=== PATIENT | male | born 1980 | race Caucasian/White ===

== ENCOUNTER 2017-06-05 09:59 | Emergency (ER) | payer MEDICAID ==
[~2017-06-05] VITALS: Ht 180.3 cm; Wt 68.2 kg
[2017-06-05] MEDS ORDERED: VENL-193 PO (10:09)
[2017-06-05] MEDS ORDERED: VENLAFAXINE HCL 75 MG TABLET PO ONE (10:30)
[2017-06-05] MEDS ORDERED: PERTUSS(ACELL),DIPH,TET VAC/PF 0.5 ML VIAL IM ONE (10:30)
[2017-06-05 10:36] LABS: BASOPHILS # (AUTO) 0.02 K/uL (0.00-0.20); BASOPHILS % (AUTO) 0.1 % (0.0-2.0); EOSINOPHILS # (AUTO) 0.06 K/uL (0.00-0.70); EOSINOPHILS % (AUTO) 0.36 % (1.0-6.0); HEMATOCRIT 41.2 % (41-53); HEMOGLOBIN 14.1 g/dL (13.5-17.5); LYMPHOCYTES # (AUTO) 2.4 K/uL (1.0-4.8); LYMPHOCYTES % (AUTO) 15.8 % (22.0-44.0); MEAN CORPUSCULAR HEMOGLOBIN 32.3 pg (26.0-34.0); MEAN CORPUSCULAR HGB CONC 34.1 G/dL (31.0-37.0); MEAN CORPUSCULAR VOLUME 95 fL (80-100); MONOCYTES # (AUTO) 2.3 K/uL (0.1-1.0); MONOCYTES % (AUTO) 14.8 % (2.0-9.0); NEUTROPHILS # (AUTO) 10.6 K/uL (1.8-7.7); PLATELET COUNT (AUTO) 254 K/uL (150-450); RED BLOOD CELL COUNT(AUTO) 4.35 MIL/uL (4.50-5.90); RED CELL DISTRIBUTION WIDTH 13.7 % (11.5-14.5); WHITE BLOOD COUNT (AUTO) 15.3 K/uL (4.5-11.0)
[2017-06-05 10:48] LABS: ANION GAP 10 mmol/L (8-16); CALCIUM, TOTAL 8.3 mg/dL (8.8-10.5); CARBON DIOXIDE 26 mmol/L (22-29); CHLORIDE 103 mmol/L (98-107); CREATININE 0.92 mg/dL (0.60-1.30); GLOMERULAR FILTR. RATE CALC > 60 mL/min (>60); POTASSIUM 3.5 mmol/L (3.5-5.1); SODIUM SERUM 139 mmol/L (136-145); UREA NITROGEN, BLOOD 20 mg/dL (7-18)
[2017-06-05 10:51] LABS: ALANINE AMINOTRANSFERASE 178 U/L (12-78); ALBUMIN 3.9 g/dL (3.4-5.0); ASPARTATE AMINOTRANSFERASE 259 U/L (15-37); BILIRUBIN,TOTAL 1.2 mg/dL (0.1-1.0); TOTAL PROTEIN, SERUM 6.9 g/dL (6.4-8.2)
[2017-06-05] MEDS ORDERED: LORazepam 2 MG TABLET PO ONE (13:00)
[2017-06-05 15:25] VITALS: BP 131/73
== END 2017-06-05 15:29 | disposition home or self-care (01) ==
LOC: EMS 10:01
DX: F20.9 Schizophrenia, unspecified (principal); D72.829 Elevated white blood cell count, unspecified; R74.0 Nonspecific elevation of levels of transaminase and lactic acid dehydrogenase [LDH]; F15.10 Other stimulant abuse, uncomplicated; F12.90 Cannabis use, unspecified, uncomplicated; F31.9 Bipolar disorder, unspecified; F17.210 Nicotine dependence, cigarettes, uncomplicated; F19.90 Other psychoactive substance use, unspecified, uncomplicated
CPT/HCPCS: 36415; 80053; 80307; 85025; 90471; 90715; 99285; G0480

== ENCOUNTER 2017-06-20 02:35 | Inpatient (IN) | payer MEDICAID ==
[~2017-06-20] VITALS: Ht 180.3 cm; Wt 66.4 kg
[~2017-06-20 02:35] MED LIST: VENL-193 PO
[2017-06-20] MEDS ORDERED: LURA40 PO (02:40)
[2017-06-20 03:10] LABS: BASOPHILS # (AUTO) 0.06 K/uL (0.00-0.20); BASOPHILS % (AUTO) 0.4 % (0.0-2.0); EOSINOPHILS % (AUTO) 0.73 % (1.0-6.0); HEMATOCRIT 42.8 % (41-53); HEMOGLOBIN 14.7 g/dL (13.5-17.5); LYMPHOCYTES # (AUTO) 2.2 K/uL (1.0-4.8); LYMPHOCYTES % (AUTO) 16.4 % (22.0-44.0); MEAN CORPUSCULAR HEMOGLOBIN 32.4 pg (26.0-34.0); MEAN CORPUSCULAR HGB CONC 34.4 G/dL (31.0-37.0); MEAN CORPUSCULAR VOLUME 94 fL (80-100); MONOCYTES # (AUTO) 1.7 K/uL (0.1-1.0); NEUTROPHILS # (AUTO) 9.2 K/uL (1.8-7.7); NEUTROPHILS % (AUTO) 69.4 % (40.0-70.0); PLATELET COUNT (AUTO) 253 K/uL (150-450); RED BLOOD CELL COUNT(AUTO) 4.54 MIL/uL (4.50-5.90); WHITE BLOOD COUNT (AUTO) 13.2 K/uL (4.5-11.0)
[2017-06-20 03:14] LABS: ANION GAP 10 mmol/L (8-16); CALCIUM, TOTAL 8.4 mg/dL (8.8-10.5); CARBON DIOXIDE 27 mmol/L (22-29); CHLORIDE 105 mmol/L (98-107); CREATININE 0.83 mg/dL (0.60-1.30); GLOMERULAR FILTR. RATE CALC > 60 mL/min (>60); POTASSIUM 3.6 mmol/L (3.5-5.1); SODIUM SERUM 142 mmol/L (136-145); UREA NITROGEN, BLOOD 11 mg/dL (7-18)
[2017-06-20 03:21] LABS: ALANINE AMINOTRANSFERASE 112 U/L (12-78); ALBUMIN 4.1 g/dL (3.4-5.0); ASPARTATE AMINOTRANSFERASE 65 U/L (15-37); BILIRUBIN,TOTAL 0.6 mg/dL (0.1-1.0); TOTAL PROTEIN, SERUM 7.3 g/dL (6.4-8.2)
[2017-06-20] MEDS ORDERED: LORazepam 2 MG TABLET PO ONE (03:30)
[2017-06-20] MEDS ORDERED: HALOPERIDOL 5 MG TABLET PO ONE (03:30)
[2017-06-20] MEDS ORDERED: HALOPERIDOL 5 MG TABLET PO PRN (04:15)
[2017-06-20] MEDS ORDERED: LORazepam 2 MG TABLET PO PRN (04:15)
[2017-06-20] MEDS ORDERED: ZOLPIDEM TARTRATE 10 MG TABLET PO PRN (04:15)
[2017-06-20 04:36] LABS: CHOL/HDL RATIO 2.9 (4.2-7.3)
[2017-06-20 16:42] VITALS: BP 111/54
[2017-06-21 03:58] VITALS: BP 125/69
[2017-06-21] MEDS ORDERED: PNEUMOCOCCAL VACCINE POLYVALENT 0.5 ML VIAL [PPSV23] IM ONE (05:45)
[2017-06-21] MEDS: NICOTINE 21 MG/24 HOUR PATCH TD SCH (09:24)
[2017-06-21 09:25] VITALS: BP 103/55
[2017-06-21] MEDS: VENLAFAXINE HCL 150 MG ER CAPSULE PO SCH (12:20)
[2017-06-21 16:38] VITALS: BP 125/74
[2017-06-21] MEDS ORDERED: ACETAMINOPHEN 325 MG TABLET PO PRN (17:15)
[2017-06-21] MEDS ORDERED: IBUPROFEN 400 MG TABLET PO PRN (17:15)
[2017-06-21] MEDS ORDERED: ARIPiprazole 10 MG TABLET PO SCH (21:00)
[2017-06-22 00:50] VITALS: BP 110/69
[2017-06-22 09:12] VITALS: BP 110/60
[2017-06-22] MEDS: VENLAFAXINE HCL 150 MG ER CAPSULE PO SCH (09:16)
[2017-06-22] MEDS: NICOTINE 21 MG/24 HOUR PATCH TD SCH (09:17)
[2017-06-22] MEDS ORDERED: ARIP20TA PO (11:20)
== END 2017-06-22 13:03 | DRG 750 ==
LOC: EMS 02:35 → AHU 10:19 → B2S 06-21 03:17
PROVIDERS: ADMIT Psychiatry & Neurology Psychiatry; ATTEND Psychiatry & Neurology Psychiatry
DX: F25.9 Schizoaffective disorder, unspecified (principal); R45.851 Suicidal ideations; K70.30 Alcoholic cirrhosis of liver without ascites; D72.829 Elevated white blood cell count, unspecified; F10.10 Alcohol abuse, uncomplicated; F17.200 Nicotine dependence, unspecified, uncomplicated; F31.9 Bipolar disorder, unspecified; F42.9 Obsessive-compulsive disorder, unspecified; F19.10 Other psychoactive substance abuse, uncomplicated; Z71.41 Alcohol abuse counseling and surveillance of alcoholic
CPT/HCPCS: 99285; 99406; G0480

== ENCOUNTER 2017-11-24 09:10 | Emergency (ER) | payer MEDICAID ==
[~2017-11-24] VITALS: Ht 180.3 cm; Wt 68.2 kg
[~2017-11-24 09:10] MED LIST changes: +ARIP20TA PO
[2017-11-24 10:37] VITALS: BP 123/93
[2017-11-24 11:27] LABS: INFLUENZA TYPE A NEGATIVE FOR TYPE A (NEGATIVE); INFLUENZA TYPE B NEGATIVE FOR TYPE B (NEGATIVE); RAPID GROUP A STREP NEGATIVE (NEGATIVE)
== END 2017-11-24 11:45 | disposition home or self-care (01) ==
LOC: EMS 09:11
DX: J02.8 Acute pharyngitis due to other specified organisms (principal); B97.89 Other viral agents as the cause of diseases classified elsewhere; F15.10 Other stimulant abuse, uncomplicated; F31.9 Bipolar disorder, unspecified; F20.9 Schizophrenia, unspecified
CPT/HCPCS: 87430; 87804; 99284

== ENCOUNTER 2018-05-09 14:40 | Emergency (ER) | payer MEDICAID ==
[~2018-05-09] VITALS: Ht 180.3 cm; Wt 72.7 kg
[2018-05-09 15:38] LABS: BASOPHILS % (AUTO) 0.5 % (0.0-2.0); EOSINOPHILS % (AUTO) 2.9 % (1.0-6.0); HEMATOCRIT 40.2 % (41-53); LYMPHOCYTES # (AUTO) 3.3 K/uL (1.0-4.8); LYMPHOCYTES % (AUTO) 35.9 % (22.0-44.0); MEAN CORPUSCULAR HEMOGLOBIN 32.2 pg (26.0-34.0); MEAN CORPUSCULAR HGB CONC 34.8 G/dL (31.0-37.0); MEAN CORPUSCULAR VOLUME 93 fL (80-100); MONOCYTES # (AUTO) 1.5 K/uL (0.1-1.0); MONOCYTES % (AUTO) 16.7 % (2.0-9.0); PLATELET COUNT (AUTO) 282 K/uL (150-450); RED BLOOD CELL COUNT(AUTO) 4.34 MIL/uL (4.50-5.90); RED CELL DISTRIBUTION WIDTH 13.7 % (11.5-14.5)
[2018-05-09 15:44] LABS: ANION GAP 7 mmol/L (8-16); CALCIUM, TOTAL 8.4 mg/dL (8.8-10.5); CARBON DIOXIDE 25 mmol/L (22-29); CHLORIDE 106 mmol/L (98-107); CREATININE 0.84 mg/dL (0.60-1.30); GLOMERULAR FILTR. RATE CALC > 60 mL/min (>60); GLUCOSE,RANDOM 101 mg/dL (70-110); POTASSIUM 3.8 mmol/L (3.5-5.1); SODIUM SERUM 138 mmol/L (136-145); UREA NITROGEN, BLOOD 13 mg/dL (7-18)
[2018-05-09 15:50] LABS: ALANINE AMINOTRANSFERASE 74 U/L (12-78); ALBUMIN 3.7 g/dL (3.4-5.0); ALKALINE PHOSPHATASE 52 U/L (46-116); ASPARTATE AMINOTRANSFERASE 38 U/L (15-37); BILIRUBIN,TOTAL 0.3 mg/dL (0.1-1.0); TOTAL PROTEIN, SERUM 6.9 g/dL (6.4-8.2)
[2018-05-09 18:15] LABS: AMPHET/METH SCREEN,URINE POSITIVE (NEGATIVE); BARBITURATE SCREEN, URINE NEGATIVE (NEGATIVE); BENZODIAZEPINES SCREEN,URINE NEGATIVE (NEGATIVE); CANNABINOID SCREEN,URINE POSITIVE (NEGATIVE); COCAINE SCREEN,URINE NEGATIVE (NEGATIVE); METHADONE SCREEN, URINE NEGATIVE (NEGATIVE); OPIATE SCREEN,URINE NEGATIVE (NEGATIVE)
[2018-05-09 18:16] LABS: PHENCYCLIDINE SCREEN,URINE NEGATIVE (NEGATIVE)
[2018-05-09 19:04] VITALS: BP 119/75
== END 2018-05-09 19:06 | disposition home or self-care (01) ==
LOC: EMS 14:41
DX: F15.10 Other stimulant abuse, uncomplicated (principal); F31.9 Bipolar disorder, unspecified; F20.9 Schizophrenia, unspecified; B19.20 Unspecified viral hepatitis C without hepatic coma; F42.8 Other obsessive-compulsive disorder; F17.210 Nicotine dependence, cigarettes, uncomplicated; Z79.899 Other long term (current) drug therapy
CPT/HCPCS: 36415; 80053; 80307; 85025; 99284; G0480

== ENCOUNTER 2019-09-16 09:17 | Emergency (ER) | payer MEDICAID ==
[~2019-09-16] VITALS: Ht 180.3 cm; Wt 81.8 kg
[~2019-09-16 09:17] MED LIST changes: +LEVO750T21 PO
[2019-09-16] MEDS ORDERED: ARIP5TAB8 PO (09:25)
[2019-09-16] MEDS ORDERED: FLUO-191 PO (09:25)
[2019-09-16] MEDS ORDERED: CLOTRIMAZOLE 1% 15 GM CREAM TP ONE (12:15)
[2019-09-16] MEDS ORDERED: BACITRACIN 0.9 GM PACKET OINTMENT TP ONE (12:15)
[2019-09-16 13:24] VITALS: BP 135/89
== END 2019-09-16 13:31 | disposition home or self-care (01) ==
LOC: EMS 09:18
DX: B35.3 Tinea pedis (principal); F17.210 Nicotine dependence, cigarettes, uncomplicated; F31.9 Bipolar disorder, unspecified; F20.9 Schizophrenia, unspecified; F19.90 Other psychoactive substance use, unspecified, uncomplicated
CPT/HCPCS: 99406

== ENCOUNTER 2019-09-18 11:50 | Emergency (ER) | payer MEDICAID ==
[~2019-09-18] VITALS: Ht 175.3 cm; Wt 77.3 kg
[~2019-09-18 11:50] MED LIST changes: -ARIP20TA PO; +ARIP5TAB8 PO; +FLUO-191 PO; -LEVO750T21 PO; -VENL-193 PO
[2019-09-18] MEDS ORDERED: LORazepam 1 MG TABLET PO ONE (12:30)
[2019-09-18 12:38] VITALS: BP 149/107
== END 2019-09-18 13:25 | disposition home or self-care (01) ==
LOC: EMS 11:51
DX: F10.10 Alcohol abuse, uncomplicated (principal); F31.9 Bipolar disorder, unspecified; F20.9 Schizophrenia, unspecified; F17.210 Nicotine dependence, cigarettes, uncomplicated; F15.90 Other stimulant use, unspecified, uncomplicated; F42.9 Obsessive-compulsive disorder, unspecified; Z86.19 Personal history of other infectious and parasitic diseases; Z79.899 Other long term (current) drug therapy

== ENCOUNTER 2020-12-03 12:34 | Emergency (ER) | payer MEDICAID ==
[~2020-12-03] VITALS: Ht 180.3 cm; Wt 81.8 kg
[2020-12-03] MEDS ORDERED: BUPR1FIL3 SL (12:40)
[2020-12-03] MEDS ORDERED: BUPRENORPHINE HCL/NALOXONE HCL 8-2 MG SUBLINGUAL TABLET SL ONE (14:15)
[2020-12-03 14:59] VITALS: BP 139/72
== END 2020-12-03 15:00 | disposition home or self-care (01) ==
LOC: EMS 12:37
DX: F11.10 Opioid abuse, uncomplicated (principal)
CPT/HCPCS: 99283

== ENCOUNTER 2020-12-25 09:18 | Emergency (ER) | payer MEDICAID ==
[~2020-12-25] VITALS: Ht 180.3 cm; Wt 86.4 kg
[~2020-12-25 09:18] MED LIST changes: +BUPR1FIL3 SL
[2020-12-25] MEDS ORDERED: SUBOXONE SL (09:33)
[2020-12-25] MEDS ORDERED: VENL-67 PO (09:33)
[2020-12-25] MEDS ORDERED: BUPR1FIL5 SL (09:48)
[2020-12-25 10:15] VITALS: BP 125/71
== END 2020-12-25 10:16 | disposition home or self-care (01) ==
LOC: EMS 09:18
DX: Z76.0 Encounter for issue of repeat prescription (principal); F11.90 Opioid use, unspecified, uncomplicated; F31.9 Bipolar disorder, unspecified; F20.9 Schizophrenia, unspecified; F17.200 Nicotine dependence, unspecified, uncomplicated; F19.90 Other psychoactive substance use, unspecified, uncomplicated; Z88.0 Allergy status to penicillin
CPT/HCPCS: 99281; 99283

== ENCOUNTER 2021-01-20 13:08 | Emergency (ER) | payer MEDICAID ==
[~2021-01-20] VITALS: Ht 180.3 cm; Wt 84.0 kg
[~2021-01-20 13:08] MED LIST changes: -ARIP5TAB8 PO; -BUPR1FIL3 SL; +BUPR1FIL5 SL; -FLUO-191 PO; +VENL-67 PO
[2021-01-20 14:15] VITALS: BP 120/81
== END 2021-01-20 14:35 | disposition home or self-care (01) ==
LOC: EMS 13:14
DX: F11.90 Opioid use, unspecified, uncomplicated (principal); F31.9 Bipolar disorder, unspecified; F20.9 Schizophrenia, unspecified; F17.200 Nicotine dependence, unspecified, uncomplicated; F19.90 Other psychoactive substance use, unspecified, uncomplicated; Z76.0 Encounter for issue of repeat prescription; Z88.0 Allergy status to penicillin
CPT/HCPCS: 99281; Z7502

== ENCOUNTER 2021-01-22 10:29 | Emergency (ER) | payer MEDICAID ==
[~2021-01-22] VITALS: Ht 180.3 cm; Wt 85.9 kg
[2021-01-22] MEDS ORDERED: BUPRENORPHINE HCL/NALOXONE HCL 8-2 MG SUBLINGUAL TABLET SL ONE (11:15)
[2021-01-22 12:16] VITALS: BP 115/68
== END 2021-01-22 12:20 | disposition home or self-care (01) ==
LOC: EMS 10:32
DX: F11.90 Opioid use, unspecified, uncomplicated (principal); F32.9 Major depressive disorder, single episode, unspecified; F20.9 Schizophrenia, unspecified; Z88.0 Allergy status to penicillin
CPT/HCPCS: 99283

== ENCOUNTER 2021-01-25 11:41 | Emergency (ER) | payer MEDICAID ==
[~2021-01-25] VITALS: Ht 180.3 cm; Wt 85.9 kg
[2021-01-25 11:44] VITALS: BP 125/65
[2021-01-25] MEDS ORDERED: BUPRENORPHINE HCL/NALOXONE HCL 8-2 MG SUBLINGUAL TABLET SL ONE (13:15)
== END 2021-01-25 13:49 | disposition home or self-care (01) ==
LOC: EMS 11:46
DX: F11.90 Opioid use, unspecified, uncomplicated (principal); F15.90 Other stimulant use, unspecified, uncomplicated; F31.9 Bipolar disorder, unspecified; F20.9 Schizophrenia, unspecified; Z79.899 Other long term (current) drug therapy
CPT/HCPCS: 99283